=== PATIENT | female | born 1980 | race Caucasian/White ===

== ENCOUNTER 2017-11-29 16:57 | Emergency (ER) | payer MEDICAID ==
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
[2017-11-29] MEDS ORDERED: hydrOXYzine HCL 50 MG TAB PO ONE (17:38)
[2017-11-29] MEDS ORDERED: busPIRone 15 MG TAB PO ONE (17:40)
[2017-11-29 18:34] LABS: PLATELET COUNT 390 10^3/uL (150-400)
[2017-11-29] MEDS ORDERED: NICOTINE 21 MG/24 HR PATCH TD ONE ×3 (19:29→22:19)
[2017-11-29] MEDS ORDERED: NICOTINE POLACRILEX 2 MG GUM B ONE (19:31)
[2017-11-29] MEDS ORDERED: NICOTINE POLACRILEX 2 MG GUM B PRN (19:32)
[2017-11-29] MEDS ORDERED: AMITRIPTYLINE HCL 50 MG TAB PO ONE (21:13)
[2017-11-29] MEDS ORDERED: GABAPENTIN 300 MG CAP PO ONE (21:13)
[2017-11-29] MEDS ORDERED: traZODone 50 MG TAB ONE (21:17)
[2017-11-29] MEDS ORDERED: IBUPROFEN 600 MG TAB PO ONE (22:17)
[2017-11-30] MEDS ORDERED: IBUPROFEN 600 MG TAB PO ONE ×2 (12:25→21:33)
[2017-11-30] MEDS: hydrOXYzine HCL 50 MG TAB PO SCH ×3 (12:29→23:00)
[2017-11-30] MEDS: GABAPENTIN 300 MG CAP PO SCH ×3 (12:30→23:00)
[2017-11-30] MEDS ORDERED: LORazepam 1 MG TAB PO ONE (14:50)
[2017-11-30] MEDS ORDERED: AMITRIPTYLINE HCL 100 MG TAB PO SCH (21:00)
[2017-11-30] MEDS: busPIRone 15 MG TAB PO SCH (21:24)
[2017-11-30] MEDS ORDERED: NICOTINE 21 MG/24 HR PATCH TD ONE ×2 (21:48→23:44)
[2017-11-30 23:17] VITALS: RESP 18
[2017-12-01] MEDS: hydrOXYzine HCL 50 MG TAB PO SCH ×2 (08:35→15:27)
[2017-12-01] MEDS: busPIRone 15 MG TAB PO SCH (08:35)
[2017-12-01] MEDS: GABAPENTIN 300 MG CAP PO SCH ×2 (08:35→15:27)
[2017-12-01] MEDS ORDERED: NICOTINE 21 MG/24 HR PATCH TD ONE (08:41)
[2017-12-01] MEDS ORDERED: IBUPROFEN 600 MG TAB PO ONE ×2 (08:41→08:46)
[2017-12-01 14:42] VITALS: BP 126/99; PULSE 97; TEMP 97.9; O2SAT 95
== END 2017-12-01 16:20 ==
LOC: EEVIPCON 16:57
DX: F15.10 Other stimulant abuse, uncomplicated (principal); F20.9 Schizophrenia, unspecified; F17.200 Nicotine dependence, unspecified, uncomplicated
CPT/HCPCS: 80305; G0480